=== PATIENT | female | born 1950 | race Caucasian/White ===

== ENCOUNTER 2022-07-02 14:24 | Emergency (ER) | payer MEDICARE ==
[2022-07-02] MEDS ORDERED: SODIUM CHLORIDE 0.9% 1,000 ML IV STA (14:38)
[2022-07-02] MEDS ORDERED: ONDANSETRON 4 MG/2 ML VIAL IVP STA (14:38)
[2022-07-02] MEDS ORDERED: HYDROmorphone 1 MG/ML CARPUJECT IVP STA (14:47)
[2022-07-02] MEDS ORDERED: iohexoL-300 100 ML VIAL ONE ×2 (14:50→15:46)
--- NOTE | 2022-07-02 15:00 | ED Physician Documentation ---
History of Present Illness - Stated complaint Stated Complaint: N/V - Chief complaint Chief Complaint: Abd Pain - Additonal information Additional information: 72-year-old female presents to the emergency department for evaluation of severe abdominal cramping and vomiting. Symptoms began about 3 hours prior to arrival. 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 She was given 100 mics of fentanyl and 4 of Zofran in route without resolution of symptoms. On presentation in the room the patient is alert though writhing in pain and guarding her stomach. Patient reports that she has begun to receive colonics because she thinks that she may be constipated. Pertinent past surgical history includes appendectomy and cholecystectomy only. She is currently being treated for hypertension. She is not anticoagulated. Review of Systems Constitutional: denies: Fever, Chills Cardiac: reports: Reviewed and negative Respiratory: reports: Reviewed and negative GI: reports: Abdominal Pain, Nausea, Vomiting. denies: Constipation, Diarrhea, Hematemesis : reports: Reviewed and negative Skin: reports: Reviewed and negative Musculoskeletal: reports: Reviewed and negative PD PAST MEDICAL HISTORY - Allergies Allergies/Adverse Reactions: Allergies Allergy/AdvReac Type Severity Reaction Status Date / Time No Known Drug Allergies Allergy Verified 07/02/22 14:42 PD ED PE NORMAL - General General: Alert and oriented X 3. No: No acute distress (Appears very uncomfortable writhing in pain.) - Cardiac Cardiac: RRR, No murmur - Respiratory Respiratory: No respiratory distress, Clear bilaterally - Abdomen Abdomen: Normal bowel sounds, Soft. No: Non tender (Generalized abdominal tenderness. Nonfocal. 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 Eye Opening: Spontaneous Motor: Obeys Commands Verbal: Oriented GCS Score: 15 Results - Vitals Vitals: Vital Signs - 24 hr 07/02/22 07/02/22 07/02/22 14:26 15:00 17:10 Temperature 36.9 C 36.3 C L Heart Rate 69 75 75 Respiratory 20 20 16 Rate Blood Pressure 208/106 H 208/106 H 195/101 H O2 Saturation 98 100 99 Oxygen O2 Source Room air - Labs Labs: Laboratory Tests 07/02/22 07/02/22 14:54 14:54 WBC 9.2 RBC 4.31 Hgb 12.9 Hct 39.7 MCV 92.1 MCH 29.9 MCHC 32.5 RDW 13.7 Plt Count 243 MPV 9.8 Neut # (Auto) 7.8 H Lymph # (Auto) 0.9 L [place] # (Auto) 0.4 Eos # (Auto) 0.1 Baso # (Auto) 0.0 Absolute Nucleated RBC 0.00 Nucleated RBC % 0.0 Sodium 136 Potassium 3.8 Chloride 99 L Carbon Dioxide 23 Anion Gap 14.0 H BUN 44 H Creatinine 1.5 H Estimated GFR (MDRD) 34 L Glucose 107 H Calcium 9.9 Total Bilirubin 0.8 AST 31 ALT 27 Alkaline Phosphatase 55 Total Protein 7.9 Albumin 4.4 Globulin 3.5 Albumin/Globulin Ratio 1.3 Lipase 40 - Rads (name of study) CT abd Radiology: Final report received (Moderate prominent amount of stool within the colon. His please correlate for constipation. Previous cholecystectomy with mild biliary dilation with CBD measuring 17 mm. If clinically appropriate consider dedicated MRCP. Additional findings: Hiatal hernia, liver cyst, hysterectomy) PD Medical Decision Making - ED course Complexity details: reviewed results, re-evaluated patient, considered differential, d/w patient ED course: 72-year-old female presents emergency department for evaluation of cute onset abdominal cramping that began this morning. She did vomit twice but has been able to keep fluids down here in the emergency department. Past surgical history includes previous cholecystectomy, and appendectomy. She does report history of constipation for which she started to receive outpatient colonics. However she does admit to infrequent bowel movements. Uncertain of her last colonoscopy. On exam she appears very uncomfortable and was initially writhing and pain though there was no peritoneal signs with exam. Symptoms improved following Dilaudid and Zofran. We did obtain CBC and electrolytes my personal interpretation of the labs is that there was no acute worrisome abnormalities. However given the age and previous surgical history a CT of the abdomen was completed to rule out an acute occult process such as a bowel obstruction. Reassuringly the CT shows moderate to large amount of stool burden throughout the colon consistent with a constipation. There were a number of incidental findings made that include CBD dilation in the setting of known cholecystectomy. She has no LFT abnormalities therefore will d efer MRCP. Incidental notes were made of atrophied right kidney, degenerative disc disease. I reevaluated the patient and she was feeling better. We discussed routine conservative management of constipation and I making the recommendation for her to take MiraLAX twice daily until she has 4-5 large adequate bowel movements. She would benefit from an outpatient colonoscopy to evaluate for any lesions or masses that could be contributing to her worsening constipated symptoms. Emergent return precautions were discussed for worsening symptoms Departure - Departure Disposition: 01 Home, Self Care Clinical Impression: Liver cyst, Degenerative disc disease, lumbar, Hiatal hernia Constipation Qualifiers: Constipation type: other constipation type Qualified Code(s): K59.09 - Other constipation Instructions: ED Constipation Comments: Gabriela zamudio are seen today in the emergency department for evaluation of severe cramping in your abdomen. Here in the emergency department your labs did not show any worrisome findings. However the CT scan does show that you have a large amount of stool burden throughout your colon. This simply means that you are severely constipated. In order to manage this I would like you to begin taking MiraLAX twice daily until you have 4 or 5 very large loose watery bowel movements. Given your age I think it is important to follow-up with your primary care provider. You should be referred for an outpatient colonoscopy to evaluate for any masses or lesions that cannot be seen on CAT scan that could be contributing to your symptoms. There were number of incidental findings made on the CAT scan that include kidney atrophy, a liver cyst, a hiatal hernia and degenerative disc disease. If at any point you find that your symptoms are worsening, you have uncontrolled fevers or vomiting please return immediately to the ER for second evaluation
[2022-07-02 15:01] LABS: BASOPHILS % (AUTO) 0.3 %; EOSINOPHILS # (AUTO) 0.1 10^3/uL (0.0-0.7); HCT - HEMATOCRIT 39.7 % (37.0-47.0); HGB - HEMOGLOBIN 12.9 g/dL (12.0-16.0); LYMPHOCYTES # (AUTO) 0.9 10^3/uL (1.5-3.5); LYMPHOCYTES % (AUTO) 9.6 %; MEAN CORPUSCULAR HEMOGLOBIN 29.9 pg (27.0-31.0); MEAN CORPUSCULAR HGB CONC 32.5 g/dL (32.0-36.0); MEAN CORPUSCULAR VOLUME 92.1 fL (81.0-99.0); MEAN PLATELET VOLUME 9.8 fL (7.9-10.8); MONOCYTES # (AUTO) 0.4 10^3/uL (0.0-1.0); MONOCYTES % (AUTO) 4.2 %; NEUTROPHILS # (AUTO) 7.8 10^3/uL (1.5-6.6); NEUTROPHILS % (AUTO) 84.6 %; PLT - PLATELET COUNT 243 10^3/uL (130-450); RED BLOOD COUNT 4.31 10^6/uL (4.20-5.40); RED CELL DISTRIBUTION WIDTH 13.7 % (12.0-15.0); WHITE BLOOD COUNT 9.2 x10^3/uL (4.8-10.8)
[2022-07-02 15:17] LABS: ALBUMIN 4.4 g/dL (3.2-5.5); ALBUMIN/GLOBULIN RATIO 1.3 (1.0-2.2); BILIRUBIN,TOTAL 0.8 mg/dL (0.2-1.0); CALCIUM 9.9 mg/dL (8.5-10.3); CREATININE 1.5 mg/dL (0.4-1.0); POTASSIUM 3.8 mmol/L (3.5-5.0); TOTAL PROTEIN 7.9 g/dL (6.7-8.2)
[2022-07-02] MEDS ORDERED: iohexoL-300 100 ML VIAL IVP ONE (16:21)
--- NOTE | 2022-07-02 17:03 | CT Report ---
PROCEDURE: ABDOMEN/PELVIS W INDICATIONS: upper abd pain; n/v CONTRAST: 100mL Omni 300 TECHNIQUE: After the administration of IV contrast, 5 mm thick sections acquired from the diaphragms to the symp hysis. 5 mm thick coronal and sagittal reformats were acquired. For radiation dose reduction, the f ollowing was used: automated exposure control, adjustment of mA and/or kV according to patient size. COMPARISON: None. FINDINGS: Image quality: Excellent. ABDOMEN: Lung bases: Lung bases are clear. Heart size is normal. A small hiatal hernia is incidentally note d. Solid organs: The liver demonstrates normal size and demonstrates no suspicious lesions. There is a water density liver cyst seen involving the anterosuperior right liver, measuring 1.4 cm. Gallbladder has been removed. Biliary system is mildly dilated at 17 mm. Minimal intrahepatic biliary ductal di latation can be seen. Pancreas enhances normally. The spleen demonstrates normal size and demonstrate s no suspicious lesions. No adrenal nodules. The right kidney is moderately atrophic. No suspicious renal masses are seen. No hydronephrosis is se en on either side. Peritoneum and bowel: Bowel loops demonstrate normal wall thickness and caliber. No free fluid or a ir. A moderate to prominent amount of stool can be seen within the colon. An apparent anastomotic st aple line can be seen within the region of the cecum. No appendix can be seen, either normal or abnor mal. No focal right lower quadrant inflammatory changes are seen. No focal right lower quadrant infla mmatory changes are seen. The cecum is medialized, as seen on series 6 image 11. Nodes and vessels: No retroperitoneal or mesenteric adenopathy by size criteria. Aorta and inferior vena cava are normal in size. Miscellaneous: No ventral hernias. PELVIS: Genitourinary: Bladder wall thickness is normal. This patient is status post hysterectomy. No adnex al masses can be seen. Miscellaneous: No inguinal hernias or adenopathy. Bones: No suspicious bony lesions. No vertebral body compression fractures. Degenerative changes a re seen throughout. There is grade 1 anterolisthesis seen at the L5-S1 level, with associated moderat e to severe disc space narrowing and associated degenerative changes. No associated pars defects are seen. Mild dextroconvex scoliotic curvature is seen. IMPRESSION: There is a moderate to prominent amount of stool seen within the colon. Please correlate with clinical constipation. Cholecystectomy, with mild biliary dilatation, with the common bile duct measuring 17 mm. If clinical ly appropriate, please consider a dedicated MRCP for further evaluation (assuming that there is no co ntraindication). Apparent anastomotic staple line seen within the region of the cecum. Additional findings: Hiatal hernia Liver cyst Hysterectomy Degenerative changes, worst at L5-S1 Reviewed by: Anthony Ryan MD on 07/02/2022 4:02 PM [facility] Approved by: Anthony Ryan MD on 07/02/2022 4:02 PM [facility]ST Station ID: [id number]
[2022-07-02] MEDS ORDERED: KETOROLAC 30 MG/ML VIAL IVP STA (17:08)
[2022-07-02 17:10] VITALS: BP 195/101
[2022-07-02 17:31] LABS: BILIRUBIN,URINE NEGATIVE (NEGATIVE); GLUCOSE, URINE (UA) NEGATIVE (NEGATIVE); KETONES,URINE (UA) TRACE mg/dL (NEGATIVE); LEUKOCYTE ESTERASE, URINE NEGATIVE (NEGATIVE); NITRITE,URINE NEGATIVE (NEGATIVE); OCCULT BLOOD,URINE NEGATIVE (NEGATIVE); PH,URINE 6.5 PH (5.0-7.5); PROTEIN,URINE 30 mg/dL (NEGATIVE); UROBILINOGEN,URINE 0.2 (NORMAL) E.U./dL (NORMAL)
[2022-07-02 17:37] LABS: CLARITY,URINE CLEAR (CLEAR)
[2022-07-02 17:45] LABS: BACTERIA,URINE None Seen /HPF (None Seen); RBC,URINE 0-5 /HPF (0-5); SQUAMOUS EPITHELIAL CELL,UR FEW Squamous (<= Few); WBC,URINE 0-3 /HPF (0-5)
== END 2022-07-02 17:57 | disposition home or self-care (01) ==
LOC: EDBD → ED 14:24
DX: K59.09 Other constipation (principal); K76.89 Other specified diseases of liver; M51.36 Other intervertebral disc degeneration, lumbar region; K44.9 Diaphragmatic hernia without obstruction or gangrene
CPT/HCPCS: 36415; 74177; 80053; 81001; 83690; 85025; 96374; 96375; 99284; J1170; Q9967; 81003; 87086

== ENCOUNTER 2022-11-03 14:18 | Outpatient (CLI) | payer MEDICARE | END 2022-11-03 14:19 | disposition critical access hospital (66) | LOC: EMS 14:18 | DX: R10.12 Left upper quadrant pain (principal); R10.11 Right upper quadrant pain; R11.10 Vomiting, unspecified; R61 Generalized hyperhidrosis | CPT/HCPCS: A0425; A0427 ==

== ENCOUNTER 2022-11-03 14:57 | Emergency (ER) | payer MEDICARE ==
[2022-11-03 15:39] LABS: BILIRUBIN,URINE NEGATIVE (NEGATIVE); GLUCOSE, URINE (UA) NEGATIVE (NEGATIVE); KETONES,URINE (UA) NEGATIVE (NEGATIVE); LEUKOCYTE ESTERASE, URINE NEGATIVE (NEGATIVE); NITRITE,URINE NEGATIVE (NEGATIVE); OCCULT BLOOD,URINE NEGATIVE (NEGATIVE); PROTEIN,URINE 30 mg/dL (NEGATIVE); UROBILINOGEN,URINE 0.2 (NORMAL) E.U./dL (NORMAL)
[2022-11-03 15:40] LABS: CLARITY,URINE CLEAR (CLEAR)
[2022-11-03 15:42] LABS: BASOPHILS % (AUTO) 0.5 %; EOSINOPHILS # (AUTO) 0.2 10^3/uL (0.0-0.7); EOSINOPHILS % (AUTO) 2.1 %; HCT - HEMATOCRIT 37.6 % (37.0-47.0); HGB - HEMOGLOBIN 12.2 g/dL (12.0-16.0); LYMPHOCYTES # (AUTO) 0.9 10^3/uL (1.5-3.5); LYMPHOCYTES % (AUTO) 12.1 %; MEAN CORPUSCULAR HEMOGLOBIN 30.8 pg (27.0-31.0); MEAN CORPUSCULAR HGB CONC 32.4 g/dL (32.0-36.0); MEAN CORPUSCULAR VOLUME 94.9 fL (81.0-99.0); MEAN PLATELET VOLUME 9.8 fL (7.9-10.8); MONOCYTES # (AUTO) 0.5 10^3/uL (0.0-1.0); MONOCYTES % (AUTO) 6.5 %; NEUTROPHILS % (AUTO) 78.4 %; PLT - PLATELET COUNT 193 10^3/uL (130-450); RED BLOOD COUNT 3.96 10^6/uL (4.20-5.40); RED CELL DISTRIBUTION WIDTH 15.5 % (12.0-15.0); WHITE BLOOD COUNT 7.7 x10^3/uL (4.8-10.8)
[2022-11-03 15:52] LABS: WBC,URINE 0-3 /HPF (0-5)
[2022-11-03 15:53] LABS: BACTERIA,URINE None Seen /HPF (None Seen); RBC,URINE None Seen /HPF (0-5); SQUAMOUS EPITHELIAL CELL,UR RARE Squamous (<= Few)
[2022-11-03 15:56] LABS: ALBUMIN 4.2 g/dL (3.2-5.5); ALBUMIN/GLOBULIN RATIO 1.5 (1.0-2.2); BILIRUBIN,TOTAL 0.5 mg/dL (0.2-1.0); CALCIUM 9.6 mg/dL (8.5-10.3); CREATININE 1.2 mg/dL (0.4-1.0); POTASSIUM 4.7 mmol/L (3.5-5.0)
[2022-11-03] MEDS ORDERED: MORPHINE 2 MG/ML CARPUJECT IVP STA (16:23)
[2022-11-03] MEDS ORDERED: SODIUM CHLORIDE 0.9% 1,000 ML IV STA (16:38)
[2022-11-03] MEDS ORDERED: KETOROLAC 30 MG/ML VIAL IVP STA (16:38)
[2022-11-03] MEDS ORDERED: ONDANSETRON 4 MG/2 ML VIAL IVP STA (16:38)
--- NOTE | 2022-11-03 16:47 | ED Physician Documentation ---
PD HPI ABD PAIN - Stated complaint Stated Complaint: ABD PX - Chief complaint Chief Complaint: Abd Pain - History obtained from History obtained from: Patient, EMS - History of Present Illness Timing - duration: Days (1) Timing - details: Gradual onset Pain level max: 9 Pain level now: 9 Quality: Aching, Pain Location: Epigastric Associated symptoms: Nausea, Vomiting. No: Fever, Hematemesis, Diarrhea, Constipation, Melena, Hematochezia, Dysuria, Hematuria, Near syncope / syncope - Additional information Additional information: Patient is a 72-year-old female who presents to the emergency department compla ining of aching abdominal pain, epigastric. She states it feels like a squeezing. She states that this happens a few times a year to her, she normally comes to the emergency department received pain medication and symptoms resolved. She states no cause has ever been found. Has had multiple CT scans and work-ups in the past. Did have nausea and vomiting today, this is typical. No hematemesis. No fevers. No chills. No trauma. Review of Systems Constitutional: denies: Fever, Chills Throat: denies: Sore throat Cardiac: denies: Chest pain / pressure Respiratory: denies: Cough GI: reports: Nausea, Vomiting : denies: Dysuria Skin: denies: Rash Musculoskeletal: denies: Neck pain, Back pain Neurologic: denies: Headache PD PAST MEDICAL HISTORY - Past Medical History Past Medical History: Yes Cardiovascular: Hypertension - Present Medications Home Medications: Ambulatory Orders Medication Instructions Recorded Confirmed Gabapentin [Neurontin] 800 mg PO QID PRN 11/03/22 11/03/22 HYDROcod/ACETAM 5/325 [[place] 5/325] 1 - 2 ea PO Q6H PRN #10 tablet 11/03/22 Ondansetron Odt [Zofran] 4 mg TL Q6H PRN #10 tablet 11/03/22 Promethazine [Phenergan] 25 mg PO Q6H PRN #10 tab 11/03/22 carvediloL [Coreg] 12.5 mg PO BID 11/03/22 11/03/22 cloNIDine [Catapres] 0.2 mg PO BID 11/03/22 11/03/22 - Allergies Allergies/Adverse Reactions: Allergies Allergy/AdvReac Type Severity Reaction Status Date / Time No Known Drug Allergies Allergy Verified 11/03/22 15:11 - Living Situation Living Situation: reports: With family Living Arrangement: reports: At home - Social History Does the pt drink ETOH?: No Does the pt have substance abuse?: No - Family History Family history: reports: Non contributory PD ED PE NORMAL - Vitals Vital signs reviewed: Yes - General General: Alert and oriented X 3, No acute distress - HEENT HEENT: Moist mucous membranes - Neck Neck: Supple, no meningeal sign - Cardiac Cardiac: RRR - Respiratory Respiratory: No respiratory distress, Clear bilaterally - Abdomen Abdomen: Soft, Non tender, Non distended - Back Back: No CVA TTP, No spinal TTP - Derm Derm: Warm and dry - Neuro Neuro: Alert and oriented X 3 - Psych Psych: Normal mood, Normal affect Results - Vitals Vitals: Vital Signs - 24 hr 11/03/22 11/03/22 11/03/22 15:01 15:21 17:10 Temperature 36.5 C Heart Rate 67 62 60 Respiratory 19 16 18 Rate Blood Pressure 203/108 H 180/91 H 182/91 H O2 Saturation 100 99 98 11/03/22 18:38 Temperature 36.5 C Heart Rate 60 Respiratory 18 Rate Blood Pressure 160/90 H O2 Saturation 98 Oxygen O2 Source Room air - Labs Labs: Laboratory Tests 11/03/22 11/03/22 11/03/22 15:05 15:38 15:38 WBC 7.7 RBC 3.96 L Hgb 12.2 Hct 37.6 MCV 94.9 MCH 30.8 MCHC 32.4 RDW 15.5 H Plt Count 193 MPV 9.8 Neut # (Auto) 6.0 Lymph # (Auto) 0.9 L [place] # (Auto) 0.5 Eos # (Auto) 0.2 Baso # (Auto) 0.0 Absolute Nucleated RBC 0.00 Nucleated RBC % 0.0 Sodium 140 Potassium 4.7 Chloride 104 Carbon Dioxide 25 Anion Gap 11.0 BUN 34 H Creatinine 1.2 H Estimated GFR (MDRD) 44 L Glucose 95 Calcium 9.6 Total Bilirubin 0.5 AST 31 ALT 25 Alkaline Phosphatase 51 Total Protein 7.0 Albumin 4.2 Globulin 2.8 Albumin/Globulin Ratio 1.5 Lipase 39 Urine Color YELLOW Urine Clarity CLEAR Urine pH 7.0 Ur Specific [place] 1.015 Urine Protein 30 H Urine Glucose (UA) NEGATIVE Urine Ketones NEGATIVE Urine Occult Blood NEGATIVE Urine Nitrite NEGATIVE Urine Bilirubin NEGATIVE Urine Urobilinogen 0.2 (NORMAL) Ur Leukocyte Esterase NEGATIVE Urine RBC None Seen Urine WBC 0-3 Ur Squamous Epith Cells RARE Squamous Urine Bacteria None Seen Ur Microscopic Review INDICATED Urine Culture Comments NOT INDICATED PD Medical Decision Making - ED course Complexity details: reviewed results, re-evaluated patient, considered differential, d/w patient ED course: No significant laboratory abnormalities. Patient was given IV morphine, Zofran, Toradol and normal saline. Symptoms fully resolved. Tolerating p.o. without difficulty. Patient request to go home at this time. No indication for further work-up. No emergency medical condition at this time. Abdomen is soft, nontender nondistended on serial exam. Patient counseled regarding signs and symptoms for which I believe and urgent re-evaluation would be necessary. Patient with good understanding of and agreement to plan and is comfortable going home at this time This document was made in part using voice recognition software. While efforts are made to proofread this document, sound alike and grammatical errors may occur. Departure - Departure Disposition: 01 Home, Self Care Clinical Impression: Abdominal pain Qualifiers: Abdominal location: unspecified location Qualified Code(s): R10.9 - Unspecified abdominal pain Condition: Good Instructions: ED Abdominal Pain Female Non-Specific Abdominal Pain Follow-Up: your,doctor in 1 week [Other] Prescriptions: HYDROcod/ACETAM 5/325 [[place] 5/325] 1 - 2 ea PO Q6H PRN #10 tablet PRN Reason: Pain Promethazine [Phenergan] 25 mg PO Q6H PRN #10 tab PRN Reason: Nausea / Vomiting Ondansetron Odt [Zofran] 4 mg TL Q6H PRN #10 tablet PRN Reason: Nausea / Vomiting Comments: [facility] [place]. Drink plenty of fluids and get home. Please return if you worsen. Please follow-up with your doctor for further care, you may benefit from a GI referral. Discharge Date/Time: 11/03/22 18:38
[2022-11-03 18:41] VITALS: BP 160/90
== END 2022-11-03 18:38 | disposition home or self-care (01) ==
LOC: EDUNIT# → ED 14:57
DX: R10.13 Epigastric pain (principal)
CPT/HCPCS: 36415; 80053; 81001; 81003; 83690; 85025; 87086; 96374; 96375; 99283